=== PATIENT | female | born 1945 | race Caucasian/White ===

== ENCOUNTER 2025-04-23 14:29 | Outpatient (REF) | payer OTHER, SELFPAY ==
[2025-04-23 15:31] LABS: MANUAL DIFF FLAG NO
[2025-04-23 16:24] LABS: Hematocrit 39.1 % (37.0-47.0); Hemoglobin 12.4 g/dl (12.0-16.0); Imm Gran Abs Auto 0.02 X10*3/uL (0.00-0.03); Imm Gran Pct Auto 0.3 % (0.0-0.4); Lymphocytes Absolute Auto 2.0 X10*3/uL (1.2-4.9); Mean Corpuscular HGB Conc 31.7 g/dl (31.0-35.0); Mean Corpuscular Hemoglobin 26.4 pg (27.0-33.0); Mean Corpuscular Volume 83.4 fL (80.0-98.0); NRBC Abs Auto 0.000 X10*3/uL (0.0-0.012); NRBC Pct Auto 0.0 /100WBC (0.0-0.2); Platelet Count 213 X10*3/uL (160-400); Red Blood Count 4.69 X10*6/uL (4.20-5.50); White Blood Count 7.1 X10*3/uL (4.8-10.8)
--- OUTSIDE RECORDS SUMMARY | 2025-04-23 17:00 | XMS_ITS | Clinical Summary ---
Author Organization [facility] Address [address] [place] [address] Care Team Providers Care Bedspread Cutter Name Role Phone Milagro Lovelace PA-C Primary Care Provider Source Comments PLEASE NOTE, if this patient is a minor, it may be UNLAWFUL to discuss sensitive information that is contained in these records (such as FAMILY PLANNING, MENTAL HEALTH or SUBSTANCE ABUSE) with the minor patient's parent or other person without the patient's specific authorization.[facility] Allergies No known active allergies Medications cholecalciferol, vitamin D3, 1,000 unit tabletIndication s:Routine general medical examination at a health care facility Take 1,000 Units by mouth 12/07/2017 Active magnesium oxide (MAG-OX) 400 mg (241.3 mg magnesium) tabletIndication s:Routine general medical examination at a health care facility Take 400 mg by mouth 12/07/2017 Active amLODIPine (NORVASC) 5 mg tabletIndication s:Essential hypertension, benign TAKE 1 TABLET BY MOUTH EVERY DAY 90 Tab 4 04/13/2019 Active Active Problems Problem Noted Date Diagnosed Date Essential hypertension, benign 02/28/2018 BPPV (benign paroxysmal positional vertigo) 02/11 Anxiety 02/28/2018 PTSD (post-traumatic stress disorder) 02/28/2018 Social History Tobacco Use Types Packs/Day Years Used Date Smoking Tobacco: Never Alcohol Use Standard Drinks/Week Comments No 0 (1 standard drink = 0.6 oz pur e alcohol) Social Connections Answer Date Recorded Social Connections and Isolation 0 02/03/2019 Financial Resource Strain Answer Date R ecorded Financial Resource Strain 0 2018 Stress Answer Date Recorded Stress 0 02/03/2019 Physical Activity Answer Date Recorded Physical Activity 0 02/03/2019 Food Insecurity Answer Date Recorded Food 0 02/03/2019 Transportation Needs Answer Date Record ed Transportation 0 02/03/2019 Housing Stability Answer Date Recorded Housing 0 02/03/2019 Safety and Environment Answer Date Deondre rded Safety 0 02/03/2019 Utilities Answer Date Recorded Utilities 0 02/03/2019 Employment Answer Date Recorded Employment 0 02/03/2019 Comments No Sex and Gender Information Value Date Recorded Sex Assigned at Female 03/01/2018 6:50 PM PDT Legal Sex Female 11:36 AM PDT Gender Identity Female 03/01/2018 6:50 PM PDT Sexual Orientation Straight 03/01/2018 6: 50 PM PDT Last Filed Vital Signs Vital Sign Reading Time Taken Comments Blood Pressure 154/70 02/28/2018 2:25 PM EDT Pulse 82 02/28/2018 2:25 PM EDT Temperature 36.8 C (98.2 F) 02/28/2018 2:25 PM EDT Respiratory Rate 16 02/28/2018 2:25 PM EDT Oxygen Saturation 98% 02/28/2018 2:25 PM EDT Inhaled Oxygen Concentration - - Weight 47.6 kg (105 lb) 02/28/2018 2:25 PM EDT Height 151 cm (4' 11.45 ) 02/28/2018 2:25 PM EDT Body Mass Index 20.89 02/28/2018 2:25 PM EDT Plan of Treatment Not on file Care Teams Bedspread Cutter Relationship Specialty Start Date End Date Milagro Lovelace PA-C [address] [place] [id number] PCP - General Internal Medicine 11/21/17
== END 2025-04-23 14:30 | disposition home or self-care (01) ==
LOC: HO.LAB 14:29
PROVIDERS: PCP Internal Medicine; Visit Provider Psychiatry & Neurology Neurology
DX: G44.209 Tension-type headache, unspecified, not intractable (principal); F41.9 Anxiety disorder, unspecified
CPT/HCPCS: 36415; 85025; 85652

== ENCOUNTER 2025-04-23 14:29 | Outpatient (AMB) | payer OTHER, SELFPAY ==
--- NOTE | 2025-04-23 14:39 | A.OFFVIS_ITS ---
Intake Visit Reasons: headache Allergies fluoxetine (From Prozac) Allergy (Unknown, Verified 04/19/25 08:06) Unknown prednisone Allergy (Unknown, Verified 04/19/25 08:06) Unknown HPI Comments Details: This is a 79-year-old Nep[place] woman who is here with her son for evaluation of chronic headaches. 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 The headache i spresent every single day, 03/01, and she usually wakes up with it with a feeling of tightness and pressure in the head. There is no associated nausea, vomiting, photophobia, or sonophobia. It extends from both temples, behind the eyes to the back of the head, and is described as fullness and pressure. She has some difficulty concentrating and occasional lightheadedness. Sometimes the headache is worse with physical activity and standing up. Stress and anxiety can make it worse. She has had no head trauma. No history of headaches in her younger years. The headache is described as amxb-[id number]. When it gets moderate, she takes an Excedrin or extra-strength Tylenol with some relief. In the past, she had seen Dr. Garland, a neurologist in [place], and was given Qulipta which did not help. She has no other medical problems and is currently on no medications. She does not exercise regularly. Her sleep is somewhat disturbed. Some nights the sleep is good and other nights it is not. She does seem to get adequate amount of sleep cumulatively. She does not snore or stop breathing. She drinks 4 cups of coffee a day. She has no sinus symptoms. She has had bilateral cataract extraction but has no visual disturbance or glaucoma. Three years ago she had a normal MRI of the brain at [facility] [place]. She reports no constitutional symptoms of weight loss, anorexia, fever, fatigue or malaise, and no jaw claudication [facility] Medical History (Updated 04/23/25 @ 14:56 by Michelle Key MD) Headache Osteoarthritis Major depressive disorder Hypertension Hyperlipidemia Cerebral microvasculopathy Atherosclerosis Dementia Chronic intractable headache Review of Systems Const Reports headache(s) ENT Reports dizziness and Reports headache(s) Neuro Reports dizziness and Reports headache(s) Psych Details: Stress Reports anxiety Physical Exam Neuro Other: ?Mini Mental Status Exam Level of Consciousness:?Alert.? Orientation:?Knows correct year, month, date, day and season.?Knows correct city, county and state. Knows correct location and floor.? Registration:?Able to register 3 objects.? Attention:?Serial 7's performed accurately.? Recall:?Able to recall 3 out of 3 objects.? Language:?Normal spontaneous speech, fluency, repetition, naming, comprehension, reading, and writing.? Total Score:?30/30.? Neurological Abnormal neurological findings:??none. No scalp tenderness or tenderness over the superficial temporal arteries? Mental Status:?Alert and oriented X 3.?Normal attention, orientation, m magnolia, and affect.? Cranial Nerves:?Pupils are equal, round and reactive to light. Fundoscopy shows normal disc bilaterally. External occular muscles are intact. Visual yu are full, no ptosis. Face is symmetrical, no facial weakness or droop. Facial sensations are normal. Tongue protrudes in midline. Palate elevates symmetrically. Shoulder shrugging is normal.? Motor Examination:?Normal muscle tone, bulk and strength.?No atrophy or fasciculations.?No drift of the extended upper extremities.?Deep tendon reflexes are 2+.?Plantars are flexor.? Motor Strength:? Proximal Muscles (out of 5):?5 Distal Muscles (out of 5):?5 Neck Flexors (out of 5):?5 Neck Extensors (out of 5):?5 Deltoid (out of 5):?5 Biceps (out of 5):?5 Triceps (out of 5):?5 Serratus Anterior (out of 5):?5 Wrist Extensors (out of 5):?5 APB (out of 5):?5 Finger Spread (out of 5):?5 Ileopsoas (out of 5):?5 Quadriceps (out of 5):?5 Hamstrings (out of 5):?5 Tibialis Anterior (out of 5):?5 Peronei (out of 5):?5 EDB (out of 5):?5 Gastrocnemius (out of 5):?5 Straight Leg Raising:?90 degrees.? Sensory Exam:?Normal light touch, temperature, pinprick, vibration and joint-position sensations.?Rhomberg sign is absent.? Coordination:?No ataxia,?no titubation,?xusnlq-ly-vttd, xurz-tcqz-ykzb test, and rapid alternating movements were normal.? Gait Exam:?Within normal limits.? Cerebellar Signs:?Rskric-ym-iguv and kncm-ur-mmah is normal.?No dysdiadochokinesia.? Extrapyramidal System:?No tremor or?rigidity, normal facial expressions.?No bradykinesia. No bradyphrenia. Normal arm swing and posture. No propulsion or retropulsion.? Speech:?Normal,?no dysphasia or dysarthria.? General Examination GENERAL APPEARANCE:??normal,?in no acute distress?,?normal,?in no acute distress.? HEAD:??normocephalic,?atraumatic.? EYES:??sclera non-icteric,?conjunctiva clear.? EARS:??auditory canal clear,?tympanic membrane intact, clear.? NOSE:??no lesions.? ORAL CAVITY:??gums normal,?mucosa moist,?no lesions.? THROAT:??clear.? NECK/THYROID:??no cervical lymphadenopathy,?thyroid normal,?neck supple, full range of motion,?no carotid bruit.? SKIN:??no rashes,?no significant birthmarks.? HEART:??S1, S2 normal,?no murmurs?,?S1, S2 normal,?no murmurs.? LUNGS:??clear anteriorly and posteriorly?,?clear anteriorly and posteriorly.? CHEST:??no gross rib deformity,?clear to auscultation.? BACK:??normal exam of spine.? MUSCULOSKELETAL:??normal.? EXTREMITIES:??no edema?,?no edema.? PERIPHERAL PULSES:??normal.? PSYCH:??alert, oriented,?cognitive function intact,?cooperative with exam?,?alert, oriented,?cognitive function intact,?cooperative with exam.? Assessment & Plan Assessment & Plan (1) Chronic daily headache: Code(s): R51.9 - Headache, unspecified Category: Medical (2) Tension headache: Code(s): G44.209 - Tension-type headache, unspecified, not intractable Category: Medical (3) Anxiety: Code(s): F41.9 - Anxiety disorder, unspecified Category: Medical Plan CT brain, CBC, Sedrate. Prophylaxis with amitriptyline 10mg hs and chlordiazepoxide 5mg Orders: Orders Erythrocyte Sedimentation Rate Today R51.9 - Headache, unspecified Complete Blood Count Auto Diff Today R51.9 - Headache, unspecified CT head/brain wo IV con 3 Weeks R51.9 - Headache, unspecified Coding Level of Care Code New Pt Level 5 (07984) Diagnoses Chronic daily headache R51.9 Tension headache G44.209 Anxiety F41.9
== END 2025-04-23 15:08 | disposition home or self-care (01) ==
LOC: HO.HSM 14:29
PROVIDERS: PCP Internal Medicine; Visit Provider Psychiatry & Neurology Neurology
DX: G44.209 Tension-type headache, unspecified, not intractable (principal); F41.9 Anxiety disorder, unspecified
CPT/HCPCS: 99204